=== PATIENT | female | born 1985 | race Caucasian/White ===

== ENCOUNTER 2023-07-21 17:24 | Emergency (ER) | payer OTHER ==
[2023-07-21] MEDS ORDERED: Dexamethasone 10 MG/ML VIAL ONE (18:52)
[2023-07-21] MEDS ORDERED: Diazepam 10 MG/2 ML SYRINGE ONE (18:52)
[2023-07-21] MEDS ORDERED: Ketorolac Tromethamine 30 MG (1 mL) VIAL ONE (18:52)
== END 2023-07-21 20:22 | disposition home or self-care (01) ==
LOC: ERS 17:24
DX: M54.50 Low back pain, unspecified (principal); F17.290 Nicotine dependence, other tobacco product, uncomplicated
CPT/HCPCS: 96372; 99283; J1100; J1885; J3360